=== PATIENT | female | born 1965 | race African-American/Black ===

== ENCOUNTER 2024-09-07 04:58 | Inpatient (IN) | payer OTHER ==
[~2024-09-07] VITALS: Ht 162.6 cm; Wt 113.4 kg
[2024-09-07] MEDS ORDERED: LACTATED RINGERS 1,000 ML IV SCH (05:15)
[2024-09-07] MEDS: ADENOSINE 3 MG/ML 2ML VIAL IV ONE ×2 (05:22→05:30)
[2024-09-07 06:19] LABS: BASOPHILS % 0.2 % (0.0-2.0); EOSINOPHILS % 1.4 % (0.0-5.0); HEMATOCRIT. 42.8 % (36.0-48.0); LYMPHOCYTES % 32.2 % (20.0-50.0); MEAN CORPUSCULAR HEMOGLOBIN 27.8 pg (28.0-32.0); MEAN CORPUSCULAR HGB CONC 32.6 g/dL (31.0-37.0); MEAN CORPUSCULAR VOLUME 85.4 fL (81.0-99.0); MEAN PLATELET VOLUME 9.2 fl (7.4-10.4); NEUTROPHILS % 57.2 % (40.0-76.0); PLATELET 338 x1000/uL (130-400); RED BLOOD CELL COUNT 5.01 mill/uL (4.2-5.4); RED CELL DISTRIBUTION WIDTH 13.2 % (11.6-14.6)
[2024-09-07 06:44] LABS: CHLORIDE 100 mEq/L (98-107); POTASSIUM 4.3 mEq/L (3.5-5.1); SODIUM 138 mEq/L (136-145)
[2024-09-07 06:45] LABS: CALCIUM 10.1 mg/dL (8.7-10.4); CARBON DIOXIDE 25 mEq/L (21-32)
[2024-09-07 06:50] LABS: CREATININE 1.4 mg/dL (0.6-1.0); UREA NITROGEN BLOOD 12 mg/dL (9-23)
[2024-09-07 06:51] LABS: TROPONIN I HIGH SENSITIVITY 10 ng/L (3.0-34)
[2024-09-07 06:59] LABS: GLUCOSE 527 mg/dL (70-105)
[2024-09-07] MEDS: INSULIN REGULAR (HUMULIN R) 1000UNITS/10ML VIAL IV ONE (07:39)
[2024-09-07 11:11] LABS: TROPONIN I HIGH SENSITIVITY 106 ng/L (3.0-34)
[2024-09-07] MEDS ORDERED: ACETAMINOPHEN 325MG TABLET PO PRN (11:15)
[2024-09-07] MEDS ORDERED: DEXTROSE 50% WATER 50ML SYRINGE IV PRN (11:15)
[2024-09-07] MEDS ORDERED: MAGNESIUM/ALUMINUM HYDROXIDE/SIMETHICONE 30ML UDC PO PRN (11:15)
[2024-09-07] MEDS ORDERED: DOCUSATE SODIUM 100MG CAPSULE PO PRN (11:15)
[2024-09-07] MEDS ORDERED: ONDANSETRON HCL 4MG/2ML INJ IV PRN (11:15)
[2024-09-07] MEDS: ENOXAPARIN 40MG/0.4ML SYR SUBCUT SCH (12:00)
[2024-09-07] MEDS: BLOOD SUGAR DIAGNOSTIC STRIP TEST SCH (13:01)
[2024-09-07] MEDS: INSULIN LISPRO 100 UNITS/ML SUBCUT SCH (13:06)
[2024-09-07] MEDS: METOPROLOL TARTRATE 25MG TABLET PO SCH (14:13)
[2024-09-07 14:40] LABS: CLARITY URINE CLEAR (CLEAR); COLOR URINE YELLOW (YELLOW); GLUCOSE URINE 3+ (NEGATIVE); KETONES URINE NEGATIVE (NEGATIVE); LEUKOCYTE ESTERASE URINE NEGATIVE (NEGATIVE); NITRITE URINE NEGATIVE (NEGATIVE); OCCULT BLOOD URINE NEGATIVE (NEGATIVE); PROTEIN URINE NEGATIVE (NEGATIVE); SPECIFIC GRAVITY URINE 1.035 (1.005-1.030)
[2024-09-07 14:56] LABS: *AMPHETAMINES SCREEN URINE NEGATIVE (NEGATIVE); *BARBITURATES SCREEN URINE NEGATIVE (NEGATIVE); *BENZODIAZEPINES SCREEN URINE NEGATIVE (NEGATIVE); *COCAINE SCREEN URINE NEGATIVE (NEGATIVE)
[2024-09-07 14:57] LABS: CANNABINOID URINE SCREEN NEGATIVE (NEGATIVE); ECSTASY MDMA SCREEN URINE NEGATIVE (NEGATIVE); METHADONE URINE SCREEN NEGATIVE (NEGATIVE); OPIATES URINE SCREEN NEGATIVE (NEGATIVE); PHENCYCLIDINE URINE SCREEN NEGATIVE (NEGATIVE)
[2024-09-07 15:00] VITALS: BP 114/74; PULSE 76; RESP 18; TEMP 36.0288
[2024-09-07 15:10] LABS: BACTERIA URINE 2+; SQUAMOUS EPITHELIAL CELL URINE FEW /lpf (RARE/1+); WBC URINE 0-2 /hpf (0-2)
[2024-09-07 15:11] LABS: RBC URINE NONE SEEN /hpf (0-2)
[2024-09-07 15:30] VITALS: BP 114/74; PULSE 76; RESP 18; TEMP 36.00288; O2SAT 99
[2024-09-07 16:41] LABS: T4 FREE 1.47 ng/dL (0.89-1.76)
[2024-09-07 16:42] LABS: THYROID STIMULATING HORMONE 1.13 uIU/mL (0.55-4.78)
[2024-09-07 19:42] LABS: TROPONIN I HIGH SENSITIVITY 89 ng/L (3.0-34)
[2024-09-07 20:00] VITALS: BP 144/87; PULSE 73; RESP 16; TEMP 36.28068; O2SAT 96
[2024-09-07] MEDS ORDERED: METF-1149 PO (21:04)
[2024-09-07] MEDS ORDERED: LISI-648 PO (21:07)
[2024-09-07] MEDS ORDERED: GLIP10TA17 PO (21:09)
[2024-09-07] MEDS ORDERED: ATOR40TA70 PO (21:12)
[2024-09-07] MEDS ORDERED: ASPI-1079 PO (21:16)
[2024-09-07] MEDS: ATORVASTATIN CALCIUM 20MG TABLET PO SCH (22:02)
[2024-09-07] MEDS: FAMOTIDINE 20MG TABLET PO SCH (22:03)
[2024-09-08] VITALS: BP 151/100; PULSE 71; RESP 16; TEMP 36.16956; O2SAT 100
[2024-09-08 00:27] LABS: TROPONIN I HIGH SENSITIVITY 68 ng/L (3.0-34)
[2024-09-08 04:00] VITALS: BP 139/69; PULSE 68; RESP 19; TEMP 36.16956; O2SAT 98
[2024-09-08 08:00] VITALS: BP 122/88; PULSE 76; RESP 18; TEMP 36.22512
[2024-09-08 08:08] LABS: CHLORIDE 102 mEq/L (98-107); SODIUM 139 mEq/L (136-145)
[2024-09-08 08:09] LABS: CALCIUM 9.5 mg/dL (8.7-10.4); CARBON DIOXIDE 28 mEq/L (21-32)
[2024-09-08 08:14] LABS: CREATININE 0.9 mg/dL (0.6-1.0); GLUCOSE 182 mg/dL (70-105); UREA NITROGEN BLOOD 9 mg/dL (9-23)
[2024-09-08] MEDS: AMLODIPINE 5MG TABLET PO SCH (08:45)
[2024-09-08] MEDS: ASPIRIN 81MG EC TABLET PO SCH (08:45)
[2024-09-08 08:49] LABS: BASOPHILS % 0.2 % (0.0-2.0); EOSINOPHILS % 1.9 % (0.0-5.0); HEMATOCRIT. 41.3 % (36.0-48.0); HEMOGLOBIN. 13.1 g/dL (12.0-16.0); LYMPHOCYTES % 32.8 % (20.0-50.0); MEAN CORPUSCULAR HEMOGLOBIN 27.1 pg (28.0-32.0); MEAN CORPUSCULAR HGB CONC 31.8 g/dL (31.0-37.0); MEAN CORPUSCULAR VOLUME 85.1 fL (81.0-99.0); MEAN PLATELET VOLUME 9.1 fl (7.4-10.4); MONOCYTES % 11.1 % (2.0-8.0); PLATELET 286 x1000/uL (130-400); RED BLOOD CELL COUNT 4.85 mill/uL (4.2-5.4); RED CELL DISTRIBUTION WIDTH 12.9 % (11.6-14.6); WHITE BLOOD COUNT 7.9 x1000/uL (4.5-11.0)
[2024-09-08] MEDS ORDERED: METO25TA6 PO (11:19)
[2024-09-08 12:00] VITALS: BP 161/88; PULSE 67; RESP 18; TEMP 35.89176
[2024-09-08] MEDS: CLONIDINE 0.1MG TABLET PO PRN (13:13)
[2024-09-08 13:50] VITALS: BP 161/88; PULSE 67; TEMP 96.6; O2SAT 99
== END 2024-09-08 16:40 | disposition home or self-care (01) | DRG 281 ==
LOC: ER 04:58 → 7WST 07:14
PROVIDERS: ADMIT Internal Medicine; ATTEND Internal Medicine
DX: I47.10 Supraventricular tachycardia, unspecified (principal); N17.9 Acute kidney failure, unspecified; I21.A1 Myocardial infarction type 2; E78.5 Hyperlipidemia, unspecified; E11.65 Type 2 diabetes mellitus with hyperglycemia; I10 Essential (primary) hypertension; Z79.899 Other long term (current) drug therapy; Z79.4 Long term (current) use of insulin
CPT/HCPCS: 36415; 71045; 80048; 80061; 80305; 81003; 82962; 83036; 84439; 84443; 84484; 85025; 93005; 93970; 99291; J0153; J1650; J1815